=== PATIENT | female | born 1955 | race Caucasian/White ===

== ENCOUNTER 2018-12-21 07:04 | Outpatient (CLI) | payer MEDICARE, OTHER ==
--- NOTE | 2018-12-21 10:06 | ULT ---
BILATERAL RENAL ULTRASOUND WITH MCMAHAN SCALE AND COLOR FLOW AND SPECTRAL DOPPLER IMAGING: HISTORY: Chronic renal failure. FINDINGS: The right kidney measures 10 cm in length and the left kidney measures 11.3 cm in length. No focal m ass or hydronephrosis is seen on either side. The kidneys are bilaterally echogenic. The postvoid urinary bladder has a volume of 100 cc. The peak systolic velocity in the right renal artery measures 110 cm/s and the left renal artery uriel ures 65 cm/s with renal artery to aortic ratios of 3.0 on the right and 1.81 on the left. IMPRESSION: 1. Medical renal disease without evidence of high-william obstruction. 2. No definite evidence of hemodynamically significant renal artery stenosis. 3. 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 POS: OFF
== END 2018-12-21 07:05 | disposition home or self-care (01) ==
LOC: SCSULT 07:04
PROVIDERS: ATTEND Internal Medicine Nephrology
DX: I12.9 Hypertensive chronic kidney disease with stage 1 through stage 4 chronic kidney disease, or unspecified chronic kidney disease (principal); N18.3 Chronic kidney disease, stage 3 (moderate); R39.198 Other difficulties with micturition
CPT/HCPCS: 76700; 76770